=== PATIENT | male | born 1945 | race Caucasian/White ===

== ENCOUNTER 2016-08-08 01:02 | Emergency (ER) | payer MEDICARE ==
[2016-08-08 02:15] LABS: BASO # 0.1 10_X3_uL (0.0-0.1); BASO % 0.6 % (0.2-1.2); EOS # 0.5 10_X3_uL (0.0-0.5); EOS % 5.1 % (0.8-7.0); GRAN # 6.8 10_X3_uL (1.8-5.4); GRAN % 73.2 % (34.0-67.9); HEMATOCRIT 39.4 % (40-51); HEMOGLOBIN 13.1 g/dL (13.7-17.5); LYMPH # 0.9 10_X3_uL (1.3-3.6); LYMPH % 9.2 % (21.8-53.1); MEAN CORPUSCULAR HGB CONC 33.2 g/dL (32.0-36.0); MEAN CORPUSCULAR VOLUME 102.3 fL (79-92); MEAN PLATELET VOLUME 8.9 fl (7.5-11.5); MONO # 1.1 10_X3_uL (0.3-0.8); MONO % 11.9 % (5.3-12.2); PLATELET COUNT 202 x10_3/uL (163-337); RED BLOOD COUNT 3.85 x10_6/uL (4.6-6.1); RED CELL DISTRIBUTION WIDTH 12.3 % (11.6-14.4); WHITE BLOOD COUNT 9.3 x10_3/uL (4.2-9.1)
[2016-08-08 02:31] LABS: ALBUMIN 3.7 gm/dL (3.4-5.0); ALKALINE PHOSPHATASE 81 U/L (50-136); ALT/SGPT 14 U/L (7.53-40.17); AST/SGOT 18 U/L (6.66-35.34); BILIRUBIN,TOTAL 0.65 mg/dL (0.0-1.0); BLOOD UREA NITROGEN 16 mg/dL (7-18); CALCIUM 9.4 mg/dL (8.7-10.7); CARBON DIOXIDE 24 mmol/L (21-32); CREATINE KINASE 80 U/L (35-232); CREATININE 0.9 mg/dL (0.6-1.3); GLUCOSE,RANDOM 113 mg/dL (70-99); SODIUM 143 mmol/L (136-145); TOTAL PROTEIN 6.6 gm/dL (6.4-8.2)
[2016-08-08 02:38] LABS: URINE BILIRUBIN NEGATIVE (NEGATIVE); URINE BLOOD 2+ (NEGATIVE); URINE GLUCOSE (UA) NORMAL (NORMAL); URINE KETONE NEGATIVE (NEGATIVE); URINE LEUKOCYTE ESTERASE TRACE (NEGATIVE); URINE NITRATE NEGATIVE (NEGATIVE); URINE PROTEIN TRACE (NEGATIVE)
[2016-08-08 02:45] LABS: URINE WBC 0-5 /[HPF] (0-3)
== END 2016-08-08 04:05 | disposition home or self-care (01) ==
LOC: ER 01:02
PROVIDERS: Internal Medicine
DX: I48.91 Unspecified atrial fibrillation (principal); R50.9 Fever, unspecified; N41.9 Inflammatory disease of prostate, unspecified; R10.9 Unspecified abdominal pain; I10 Essential (primary) hypertension; I50.9 Heart failure, unspecified; Z85.038 Personal history of other malignant neoplasm of large intestine; Z88.2 Allergy status to sulfonamides; Z79.899 Other long term (current) drug therapy; Z79.02 Long term (current) use of antithrombotics/antiplatelets
CPT/HCPCS: 36415; 71010; 80053; 81001; 82550; 82553; 83605; 85025; 87040; 93005; 96374; 96375; 99070; 99284-25